=== PATIENT | male | born 1990 | race Caucasian/White ===

== ENCOUNTER 2016-06-19 14:29 | Emergency (ER) | payer OTHER ==
[~2016-06-19] VITALS: Ht 182.9 cm; Wt 55.1 kg
[2016-06-19 14:31] VITALS: BP 153/80
[2016-06-19] MEDS ORDERED: PEN-VEE K,VEET500 MG PO (15:06)
[2016-06-19] MEDS ORDERED: NAPROSYN500 MG PO (15:06)
== END 2016-06-19 15:25 | disposition home or self-care (01) ==
LOC: EME 14:29
DX: K04.7 Periapical abscess without sinus (principal)
CPT/HCPCS: 99281; 99283

== ENCOUNTER 2016-08-22 20:34 | Emergency (ER) | payer OTHER ==
[~2016-08-22] VITALS: Ht 182.9 cm; Wt 54.2 kg
[~2016-08-22 20:34] MED LIST: NAPROSYN500 MG PO; PEN-VEE K,VEET500 MG PO
[2016-08-22 20:47] VITALS: BP 147/93
[2016-08-22] MEDS ORDERED: KENALOG,ARISTOC80 G1 TP (20:53)
[2016-08-22] MEDS ORDERED: PREDNISONE20 MG PO (20:53)
== END 2016-08-22 21:09 | disposition home or self-care (01) ==
LOC: EXP 20:34 → EME 20:34 → EXP 21:09
DX: L25.9 Unspecified contact dermatitis, unspecified cause (principal); R42 Dizziness and giddiness; F17.200 Nicotine dependence, unspecified, uncomplicated
CPT/HCPCS: 99281; 99283; J7512